=== PATIENT | male | born 1950 | race Caucasian/White ===

== ENCOUNTER 2023-09-08 07:36 | Emergency (ER) | payer MEDICARE, SELFPAY ==
[2023-09-08] VITALS (9 sets, daily range): BP systolic 113–149; BP diastolic 65–93; BMI 30.1
--- NOTE | 2023-09-08 08:09 | ED.GENMED ---
History of Present Illness
General
Chief Complaint: Breathing Problem
Source: patient
Time Seen by Provider: 09/08/23 07:58
Travel History
Have you had any contact with someone who has COVID-19?: No
Do you have any symptoms of coronavirus? Fever > 100 degrees, chills, cough, shortness of breath, sore throat, loss of taste or smell, muscle aches, or headache?: No
History of Present Illness
History of Present Illness:
72-year-old male presents emergency room complaining of shortness of breath and wheezing. Patient also complaining of cough which is nonproductive. Symptoms began over the past 48 hours. He has had 1 previous episode of wheezing in March. At
that time he was treated here in the emergency room with nebulized treatments. He was discharged on inhaler. He is followed with his family doctor and was started on maintenance combo inhaled powder. He was doing well up until the symptoms began.
Patient has a history of hypopituitarism. He did smoke but quit 30 years ago. He denies any fever or chills.
Past History
Past History
ED Past Medical History: CAD, Hypothyroidism and Other (Ulcerative colitis, hypopituitarism, [place] disease)
ED Past Surgical History: Cardiac (Angioplasty)
Social History
Tobacco: Former smoker
Alcohol: Occasional
Personal:
Living: with family
Phy Exam
Physical Exam
Physical Exam:
General: Awake, Alert, Oriented X3. No acute distress.
Vitals: unremarkable
Head: Atraumatic
Eyes: Pupils equal, EOMI
Throat: Airway intact, no exudates
Neck: Trachea midline
Lungs: Decreased breath sounds bilaterally, x-ray wheezing bilaterally
Heart: Regular rate, no murmurs
Abd: Soft, Nontender, No pulsatile mass
Neuro: Nonfocal
Skin: Warm, dry, no rash
Extremities: pulses equal b/l, no edema
Scores
Heart Failure Risk
Heart Failure Risk Score: Not Applicable
Course
Orders/Labs/Results
Orders:
Orders
09/08/23 07:40
EKG [Electrocardiogram (*1)] Urgent
Reason for Study: Shortness of Breath
EKG- Treatment ONCE
09/08/23 08:08
Ipratropium/Albuterol Sulfate [Duoneb] 3 ml INH R NOW STA
09/08/23 08:15
COVID-19 Antigen Urgent
Source: Nasal Swab
Influenza A+B Rapid Molecular Urgent
[facility] Source: Nasal Swab
Specimen Description:
09/08/23 10:17
Albuterol Sulfate [Ventolin Nebules] 7.5 mg INH R NOW STA
Prednisone [Deltasone] 50 mg PO NOW STA
09/08/23 11:33
CR Chest - 2 Views Urgent
Comment:
Reason For Exam: cough, sob
Vital Signs
Initial and Last Documented VS:
Initial Vital Signs
Temp Pulse Resp BP Pulse Ox
98.2 F 76 18 134/74 97
09/08/23 07:37 09/08/23 07:37 09/08/23 07:37 09/08/23 07:37 09/08/23 07:37
Last Documented Vital Signs
Temp Pulse Resp BP Pulse Ox
97.8 F 103 21 113/65 93
09/08/23 11:40 09/08/23 12:15 09/08/23 12:15 09/08/23 12:00 09/08/23 12:15
MDM/Problems Addressed
Differential Diagnosis Includes:
bronchospasm, pneumonia, chf
MDM/Problems Addressed:
Patient presents with wheezing and shortness of breath. He did have some improvement with nebs and oral steroids. No evidence of infection on chest x-ray. Will cover with Doxy. Discharged on prednisone and albuterol metered-dose inhaler as well.
*Radiology
Radiology exam reviewed: radiology read reviewed
*Pulse Oximetry
Patient hypoxic: no
*EKG
Interpretation: normal
Heart Rate: 75
Rate: normal
Rhythm: sinus
[place]: normal axis
Interval: normal interval
QRS Pattern: normal QRS
Ischemia: no ischemia
*Nursing Attendant Interpretation
Rate: normal
Interpretation: normal
Rhythm: sinus
*Critical Care Note
Total Time (30-74mins, 75-104mins- exclusive of procedures): Not Applicable
ED Attending Note
-
Portions of this chart may have been created with voice recognition software.� Occasional wrong word or��sound alike� substitutions may have occurred due to the inherent limitations of voice recognition software.
Discharge Plan
Departure
Patient Disposition: Home (Routine Discharge)
Date of Disposition: 09/08/23
Time of Disposition: 12:22
Patient with high blood pressure during this ER visit?: No
Condition: Good
Discharge Problem:
Acute bronchitis
Instructions: Acute bronchitis, BLOOD PRESSURE
Prescriptions:
New
doxycycline monohydrate 100 mg capsule
100 mg PO BID Qty: 14 0RF
albuterol sulfate 90 mcg/actuation HFA aerosol inhaler
2 inh inhalation Q4H PRN (Reason: shortness of breath or wheezing) Qty: 8.5 0RF
prednisone 20 mg tablet
40 mg PO DAILY Qty: 4 0RF
No Action
cholecalciferol (vitamin D3) 2,000 UNIT tablet
2,000 unit PO DAILY
mesalamine [Lialda] 1.2 GM tablet,delayed release (DR/EC)
4.8 g PO DAILY
levothyroxine 100 MCG tablet
100 mcg PO DAILY AT 0700
atorvastatin 80 MG tablet
80 mg PO QPM 30 Days Qty: 30 0RF
clopidogrel 75 MG tablet
75 mg PO DAILY 30 Days Qty: 30 0RF
hydrocortisone 10 MG tablet
10 mg PO 1600 Qty: 0 0RF
Rx Instructions:
resume after prednisone taper therapy
hydrocortisone 10 MG tablet
20 mg PO 0800 Qty: 0 0RF
Rx Instructions:
resume after prednisone taper therapy
albuterol sulfate [ProAir HFA] 90 mcg/actuation HFA aerosol inhaler
1 puff inhalation Q4HPRN PRN (Reason: wheezing) Qty: 6.7 0RF
Referrals:
Hilario Doran I., DO [Family Provider] -
Interventions
Interventions:
*Risk Screen - Suicide Last Done: 09/08/23 07:37
*General Assessment Last Done: 09/08/23 07:37
*Neglect/Abuse Screening Last Done: 09/08/23 07:37
ED- Fall Risk Assessment Last Done: 09/08/23 08:02
*ED COVID-19 Vaccine History Last Done: 09/08/23 07:37
*Nursing Disposition Last Done: 09/08/23 12:29
ED- Cardiac Assessment Last Done: 09/08/23 08:02
ED- Pulmonary Assessment Last Done: 09/08/23 08:02
Discharge Date and Time
Discharge Date/Time: 09/08/23 12:29
Print Language: LITHUANIAN
[2023-09-08] MEDS: DUONEB 3 ML INH (08:16)
[2023-09-08 08:50] LABS: COVID-19 Antigen Negative (Negative)
[2023-09-08] MEDS: DELTASONE 50 MG PO (10:21)
[2023-09-08] MEDS: VENTOLIN NEBULES 7.5 MG INH (10:21)
--- NOTE | 2023-09-08 11:40 | EDRN ---
this RN noticed that the pts Sp02 on RA has dropped to 89%, this RN notified Dr. Villar
--- NOTE | 2023-09-08 12:12 | EDRN ---
per the providers request the pt was ambulated around the emergency department, the pt was able to walk at a normal brisk pace and the pts HR went up into the 120's, the pts Sp02 remained at 93-96%, the pt stated, 'I don't feel short of breath but i
feel myself still wheezing', the pt is resting in stretcher, HR now at 106, RA Sp02 96%, Dr. Villar notified, will continue to monitor the pt closely
== END 2023-09-08 12:29 | disposition home or self-care (01) ==
LOC: EMR 07:36
PROVIDERS: EMERGENCY PHYSICIAN Emergency Medicine; FAMILY PHYSICIAN Internal Medicine
DX: J20.9 Acute bronchitis, unspecified (principal); Z11.52 Encounter for screening for COVID-19; I25.10 Atherosclerotic heart disease of native coronary artery without angina pectoris; E03.9 Hypothyroidism, unspecified; K51.90 Ulcerative colitis, unspecified, without complications; E27.1 Primary adrenocortical insufficiency; E23.0 Hypopituitarism; Z87.891 Personal history of nicotine dependence; Z91.048 Other nonmedicinal substance allergy status
CPT/HCPCS: 99284; 94640; 94644; 71046; 87502; 87811; 93005

== ENCOUNTER 2024-05-01 09:55 | Outpatient (RCR) | payer MEDICARE, SELFPAY | END 2024-05-01 23:59 | disposition home or self-care (01) | LOC: RPT 09:55 | PROVIDERS: ATTENDING PHYSICIAN Orthopaedic Surgery; FAMILY PHYSICIAN Internal Medicine | DX: M16.12 Unilateral primary osteoarthritis, left hip (principal); M25.552 Pain in left hip; Z73.6 Limitation of activities due to disability | CPT/HCPCS: 97110; 97161 ==

== ENCOUNTER 2024-05-12 13:01 | Emergency (ER) | payer MEDICARE, SELFPAY ==
[2024-05-12] VITALS (12 sets, daily range): BP systolic 105–169; BP diastolic 61–113; PULSE 58–69; BMI 28.3
[2024-05-12 13:45] LABS: % Basophils 1.2 % (0-2); % Eosinophils 2.7 % (0-6); % Immature Granulocytes 2.2 % (0-0.5); % Monocytes 8.5 % (1.7-9.3); % Neutrophils 78.4 % (42.2-75.2); Absolute Basophils 0.1 10^3/uL (0-0.2); Absolute Eosinophils 0.2 10^3/uL (0-0.7); Absolute Immature Granulocytes 0.2 10^3/uL (0-0.05); Absolute Lymphocytes 0.5 10^3/uL (1.2-3.4); Absolute Monocytes 0.6 10^3/uL (0.1-0.6); Absolute Neutrophils 5.8 10^3/uL (1.4-6.5); Hematocrit 41.6 % (39.0-52.0); Hemoglobin 14.7 g/dL (13.0-18.0); Mean Corp Hgb Conc. 35.3 g/dL (33.0-37.0); Mean Corpuscular Hgb 31.4 pg (27.0-31.0); Mean Corpuscular Volume 88.9 fL (80.0-94.0); Mean Platelet Volume 8.2 fL (7.4-10.4); Nucleated Red Blood Cells % 0 % (-); Platelet Count 218 10^3/uL (130-400); Red Blood Cell Count 4.68 10^6/uL (4.70-6.10); Red Cell Dist. Width 12.7 % (11.5-14.5); White Blood Cell Count 7.3 10^3/uL (4.8-10.8)
[2024-05-12 13:59] LABS: ALT (SGPT) 25 U/L (0-50); AST (SGOT) 28 U/L (17-59); Albumin 3.2 g/dl (3.5-5.0); Alkaline Phosphatase 96 U/L (38-126); Blood Urea Nitrogen 13 mg/dl (9-20); Calcium 9.5 mg/dl (8.4-10.2); Carbon Dioxide 28 mmol/L (22-30); Chloride 100 mmol/L (98-107); Glucose 96 mg/dl (70-99); Lipase 116 U/L (23-300); Sodium 133 mmol/L (135-145); Total Bilirubin 0.7 mg/dl (0.2-1.3); Total Protein 6.1 g/dl (6.3-8.2); eGFR > 60.00
--- NOTE | 2024-05-12 15:22 | ED.GENMED ---
History of Present Illness
<Alex Garcia MD, Resident - Last Filed: 05/12/24 19:37>
General
Chief Complaint: Abdominal Symptoms
Source: patient
Exam Limitations: none
Time Seen by Provider: 05/12/24 15:21
Nursing documentation reviewed up to this point in time: agreed with
Travel History
Have you traveled to any high risk areas for coronavirus over the past 14 days?: No
Have you had any contact with someone who has COVID-19?: No
Do you have any symptoms of coronavirus? Fever > 100 degrees, chills, cough, shortness of breath, sore throat, loss of taste or smell, muscle aches, or headache?: No
History of Present Illness
History of Present Illness:
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
diarrhea. Patient reports that he went to see his program evaluator today and was asked to come in for fluid resuscitation for suspected dehydration. Patient reports multiple watery diarrhea without blood or mucus that has started to improve. His
diarrhea does not improve with fasting. He also reports that his program evaluator performed orthostatics which was positive in the office. Patient sees Dr. Hilario Osborn and undergoes colonoscopy every 2 years. His next appointment is scheduled for
June 15, 2024. He denies sick contacts, recent travels, or use of laxatives. He denies abdominal pain, nausea, vomiting, constipation, fever, chills, chest pain, shortness of breath, palpitations.
Past History
<Alex Garcia MD, Resident - Last Filed: 05/12/24 19:37>
Past History
ED Past Medical History: CAD, Hypothyroidism and Other (Ulcerative colitis, hypopituitarism, [place] disease)
ED Past Surgical History: Cardiac (Angioplasty)
Social History
Tobacco: Former smoker
Alcohol: Occasional
Personal:
Living: with family
Review of Systems
<Alex Garcia MD, Resident - Last Filed: 05/12/24 19:37>
Review of Systems
All Other Systems: ROS reviewed and negative except as documented in HPI and ROS
Phy Exam
<Alex Garcia MD, Resident - Last Filed: 05/12/24 19:37>
Physical Exam
Physical Exam:
Physical Exam
General: no apparent distress, not acutely ill
Neck: supple. no meningeal signs. normal posterior pharynx
Heart: S1/S2 regular rate and rhythm, no murmur. equal radial pulses.
Lungs: no acute respiratory distress. clear bilaterally
Abdomen: Distended, normal bowel sounds. not tender. no CVAT
Neuro: alert and oriented. no focal neurological deficits
Skin: no rash
Psychiatric: well kept. interactive and cooperative
Extremities: no edema. no calf tenderness. negative homans. good distal pulses
Pulmonary Exam
Pulmonary Exam: lungs clear, no respiratory distress, no rales and no crackles
Gastrointestinal Exam
Gastrointestinal Exam: normal bowel sounds, non tender, soft and distended
Neurological Exam
Neurological Exam: alert, oriented x3 and no motor deficits
Course
<Alex Garcia MD, Resident - Last Filed: 05/12/24 19:37>
Orders/Labs/Results
Orders:
Orders
05/12/24 13:25
Complete Blood Count/With Diff Urgent
Comprehensive Metabolic Panel Urgent
Lipase Urgent
05/12/24 15:47
0.9% Sodium Chloride 1000 ml [Nss] 1,000 ml IV BOLUS
05/12/24 15:59
C difficile Antigen & Toxins Stat
[facility] Source: ST
Specimen Description:
Date Specimen was Collected: 05/12/24
Time Specimen was Collected: 15:56
Norovirus by PCR Stat
[facility] Source: Feces/Stool
Specimen Description:
Date Specimen was Collected: 05/12/24
Time Specimen was Collected: 15:56
O&P Giardia/Cryptosporidium AG [Giardia/Cryptosporidium Ag] Stat
[facility] Source: Feces/Stool
Specimen Description:
Date Specimen was Collected: 05/12/24
Time Specimen was Collected: 15:56
Stool Culture Stat
[facility] Source: Feces/Stool
Specimen Description:
Date Specimen was Collected: 05/12/24
Time Specimen was Collected: 15:56
05/12/24 16:09
Orthostatic VS- Treatment ONCE
05/12/24 16:23
Add On - Microbiology Urgent
Tests Added?: C diff toxin
Abnormal Lab Results
05/12/24
13:25
RBC 4.68 L 10^6/uL
(4.70-6.10)
MCH 31.4 H pg
(27.0-31.0)
Abs Immat Gran (auto) 0.2 H 10^3/uL
(0-0.05)
Absolute Lymphs (auto) 0.5 L 10^3/uL
(1.2-3.4)
Immature Gran % 2.2 H %
(0-0.5)
Neutrophils % 78.4 H %
(42.2-75.2)
Lymphocytes % 7.0 L %
(20.5-51.1)
Sodium 133 L mmol/L
(135-145)
Total Protein 6.1 L g/dl
(6.3-8.2)
Albumin 3.2 L g/dl
(3.5-5.0)
05/12/24 13:25
05/12/24 13:25
Vital Signs
Initial and Last Documented VS:
Initial Vital Signs
Temp Pulse Resp BP Pulse Ox
97.4 F 72 18 105/72 98
05/12/24 13:10 05/12/24 13:10 05/12/24 13:10 05/12/24 13:10 05/12/24 13:10
Last Documented Vital Signs
Temp Pulse Resp BP Pulse Ox
97.5 F 82 20 134/113 94
05/12/24 15:05 05/12/24 17:38 05/12/24 17:38 05/12/24 18:00 05/12/24 18:00
<Merry Esparza, DO - Last Filed: 05/12/24 17:28>
Orders/Labs/Results
Orders:
Orders
05/12/24 13:25
Complete Blood Count/With Diff Urgent
Comprehensive Metabolic Panel Urgent
Lipase Urgent
05/12/24 15:47
0.9% Sodium Chloride 1000 ml [Nss] 1,000 ml IV BOLUS
05/12/24 15:59
C difficile Antigen & Toxins Stat
[facility] Source: ST
Specimen Description:
Date Specimen was Collected: 05/12/24
Time Specimen was Collected: 15:56
Norovirus by PCR Stat
[facility] Source: Feces/Stool
Specimen Description:
Date Specimen was Collected: 05/12/24
Time Specimen was Collected: 15:56
O&P Giardia/Cryptosporidium AG [Giardia/Cryptosporidium Ag] Stat
[facility] Source: Feces/Stool
Specimen Description:
Date Specimen was Collected: 05/12/24
Time Specimen was Collected: 15:56
Stool Culture Stat
[facility] Source: Feces/Stool
Specimen Description:
Date Specimen was Collected: 05/12/24
Time Specimen was Collected: 15:56
05/12/24 16:09
Orthostatic VS- Treatment ONCE
05/12/24 16:23
Add On - Microbiology Urgent
Tests Added?: C diff toxin
Abnormal Lab Results
05/12/24
13:25
RBC 4.68 L 10^6/uL
(4.70-6.10)
MCH 31.4 H pg
(27.0-31.0)
Abs Immat Gran (auto) 0.2 H 10^3/uL
(0-0.05)
Absolute Lymphs (auto) 0.5 L 10^3/uL
(1.2-3.4)
Immature Gran % 2.2 H %
(0-0.5)
Neutrophils % 78.4 H %
(42.2-75.2)
Lymphocytes % 7.0 L %
(20.5-51.1)
Sodium 133 L mmol/L
(135-145)
Total Protein 6.1 L g/dl
(6.3-8.2)
Albumin 3.2 L g/dl
(3.5-5.0)
05/12/24 13:25
05/12/24 13:25
Vital Signs
Initial and Last Documented VS:
Initial Vital Signs
Temp Pulse Resp BP Pulse Ox
97.4 F 72 18 105/72 98
05/12/24 13:10 05/12/24 13:10 05/12/24 13:10 05/12/24 13:10 05/12/24 13:10
Last Documented Vital Signs
Temp Pulse Resp BP Pulse Ox
97.5 F 82 20 134/113 94
05/12/24 15:05 05/12/24 17:38 05/12/24 17:38 05/12/24 18:00 05/12/24 18:00
<Alex Lucian Garcia MD, Resident - Last Filed: 05/12/24 19:37>
MDM/Problems Addressed
MDM/Problems Addressed:
74-year-old male with PMH of ulcerative colitis, hypopituitarism, Woodburn's disease, who presented to the emergency department today with 1 week history of watery, nonbloody diarrhea. Differential diagnosis include viral gastroenteritis from
norovirus, cryptosporidiosis, C. difficile colitis given that his history of IBD immunocompromised state with chronic steroid use, hypothyroidism. IBD flare is less likely (no abdominal pain, fever). His history and physical exam does not support
acute infectious diarrhea from bacterial gastroenteritis.
While in the ED, his vitals has been stable, he is afebrile and saturating at 98% on room air.
Will check CBC, CMP, lipase.
Will get stool cultures, stool O&P, norovirus PCR, C. difficile antigen.
Will give a bolus of normal saline and observe patient.
Get orthostatic vitals.
Chronic conditions affecting care: Immunosuppressed and Other (History of IBD, chronic steroid use)
<Alex Garcia MD, Resident - Last Filed: 05/12/24 19:37>
*Critical Care Note
Total Time (30-74mins, 75-104mins- exclusive of procedures): Not Applicable
Data Reviewed
Review of Other/Old Records Reveals: Labs (Sodium 133)
<Alex Garcia MD, Resident - Last Filed: 05/12/24 19:37>
Update Note
Update Note:
BMP remarkable for sodium 133. Stool studies negative for Cryptosporidium, Giardia, C. difficile. Stool cultures pending.
Orthostatic vitals normal.
Will discharge patient to follow-up with PCP in 1 less than 7 days.
ED Attending Note
<Alex Garcia MD, Resident - Last Filed: 05/12/24 19:37>
-
Portions of this chart may have been created with voice recognition software.� Occasional wrong word or��sound alike� substitutions may have occurred due to the inherent limitations of voice recognition software.
<Merry Esparza, DO - Last Filed: 05/12/24 17:28>
ED Attending Note
Patient seen and examined by attending physician: Yes
I performed the substantive portion of visit, reviewed & personally made and approve the management plan that is documented in note by myself or GERRY.: Yes
I performed a history and physical exam of patient and discussed management with resident, I reviewed resident's note and agree with documented findings and plan of care.: Yes
ED Attending Note:
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 Reports that diarrhea has been overall improving since it
began, however is still persistent. He went to the program evaluator today for follow-up appointment, and program evaluator was concerned that he may be dehydrated, so sent him to the emergency department for further assessment. Patient denies any
fever. He denies any abdominal pain. He denies any blood in the diarrhea. He denies any vomiting. He does note that he felt a little bit lightheaded this morning. Does also noted onset of symptoms, had multiple episodes of diarrhea, and
subsequently had a an episode where he dropped to the floor with near syncope. Reports that this has happened to him before secondary to his endocrine issues. Vital signs are normal.
On exam patient is resting comfortably, no acute distress or discomfort. Benign cardiac, pulmonary, abdominal exam. No significant signs of dehydration, moist mucous membranes, normal heart rate. No tenderness to the abdomen, soft nondistended.
Suspect likely viral enteritis as etiology of symptoms. Given benign abdominal exam, without present concern for serious intra-abdominal process or infection or severe ulcerative colitis flare. Will start patient on IV fluids. Will send stool
culture if able to provide. Will screen with laboratory analysis and obtain orthostatics.
17:20 - Stool cultures are negative. Patient reports feeling better after fluids. Orthostatics negative. Feel stable for discharge with continued outpatient supportive therapy. Return precautions discussed and patient verbalized understanding
Discharge Plan
Departure
Patient Disposition: Home (Routine Discharge)
Date of Disposition: 05/12/24
Time of Disposition: 17:29
Patient with high blood pressure during this ER visit?: Yes
Condition: Fair
Covid-19: Not Applicable
Discharge Problem:
Ulcerative colitis, Hypothyroidism, Hypopituitarism, Adrenal insufficiency
Instructions: Diarrhea in teens and adults, Viral gastroenteritis in adults, Dehydration, Adult (DC)
Prescriptions:
No Action
cholecalciferol (vitamin D3) 2,000 UNIT tablet
2,000 unit PO DAILY
mesalamine [Lialda] 1.2 GM tablet,delayed release (DR/EC)
4.8 g PO DAILY
levothyroxine 100 MCG tablet
100 mcg PO DAILY AT 0700
atorvastatin 80 MG tablet
80 mg PO QPM 30 Days Qty: 30 0RF
clopidogrel 75 MG tablet
75 mg PO DAILY 30 Days Qty: 30 0RF
albuterol sulfate [ProAir HFA] 90 mcg/actuation HFA aerosol inhaler
1 puff inhalation Q4HPRN PRN (Reason: wheezing) Qty: 6.7 0RF
albuterol sulfate 90 mcg/actuation HFA aerosol inhaler
2 inh inhalation Q4H PRN (Reason: shortness of breath or wheezing) Qty: 8.5 0RF
Referrals:
Hilario Doran I., DO [Family Provider] -
Activity Restrictions/Additional Instructions:
You presented with signs of dehydration due to 1 week history of diarrhea. Given your benign abdominal exam there is no concern for intra-abdominal process or infection. We have treated you with IV fluid and he has to cultures are negative. You
likely have a viral gastroenteritis which is self-limited and will resolve in a few days. Please keep yourself hydrated, drink enough fluid, rest and please return to the emergency department if symptoms does not improve or worsens. Please
follow-up with your PCP in 3 to 5 days.
Interventions
Interventions:
*Risk Screen - Suicide Last Done: 05/12/24 13:12
*General Assessment Last Done: 05/12/24 13:12
*Neglect/Abuse Screening Last Done: 05/12/24 13:12
ED- Fall Risk Assessment Last Done: 05/12/24 15:05
*ED COVID-19 Vaccine History Last Done: 05/12/24 15:05
*Nursing Disposition Last Done: 05/12/24 18:09
[id number] Assessment Last Done: 05/12/24 15:05
Discharge Date and Time
Discharge Date/Time: 05/12/24 18:09
Print Language: TRINIDADIAN
[2024-05-12] MEDS: NSS 1000 IV (16:04)
== END 2024-05-12 18:09 | disposition home or self-care (01) ==
LOC: EMR 13:01
PROVIDERS: Emergency Medicine; EMERGENCY PHYSICIAN Student in an Organized Health Care Education/Training Program; FAMILY PHYSICIAN Internal Medicine
DX: K51.90 Ulcerative colitis, unspecified, without complications (principal); E03.9 Hypothyroidism, unspecified; E23.0 Hypopituitarism; E27.1 Primary adrenocortical insufficiency; D84.81 Immunodeficiency due to conditions classified elsewhere; I25.10 Atherosclerotic heart disease of native coronary artery without angina pectoris; Z79.52 Long term (current) use of systemic steroids; Z87.891 Personal history of nicotine dependence
CPT/HCPCS: 99283; 96360; 80053; 83690; 85025; 87045; 87046; 87324; 87328; 87329; 87427; 87449; 87798

== ENCOUNTER 2024-06-15 06:25 | Day surgery (SDC) | payer MEDICARE, SELFPAY | END 2024-06-15 11:34 | disposition home or self-care (01) | LOC: GI 06:25 | PROVIDERS: ATTENDING PHYSICIAN Specialist; FAMILY PHYSICIAN Internal Medicine | DX: K51.00 Ulcerative (chronic) pancolitis without complications (principal) | CPT/HCPCS: 45380; 88305 ==